=== PATIENT | female | born 1975 | race Caucasian/White ===

== ENCOUNTER 2017-01-19 00:17 | Emergency (ER) | payer OTHER ==
[~2017-01-19] VITALS: Ht 165.1 cm; Wt 76.9 kg
[~2017-01-19 00:17] MED LIST: CLEOCIN150 MG PO; NAPROXEN500 MG PO; NORCO 5/3251 TABLET PO; OXYCODONE H5 MG/5 ML PO; TOBREX5 ML LEFT EYE
[2017-01-19] MEDS ORDERED: TOBREX5 ML LEFT EYE (01:53)
[2017-01-19 02:08] VITALS: BP 121/81
== END 2017-01-19 02:09 | disposition home or self-care (01) ==
LOC: EXP 00:17 → EME 00:17 → EXP 02:09
DX: H10.9 Unspecified conjunctivitis (principal); F17.200 Nicotine dependence, unspecified, uncomplicated
CPT/HCPCS: 99281; 99283

== ENCOUNTER 2017-02-05 13:19 | Emergency (ER) | payer OTHER ==
[~2017-02-05] VITALS: Ht 165.1 cm; Wt 75.5 kg
[2017-02-05 14:36] LABS: POINT-OF-CARE METER ID UU13113702
[2017-02-05] MEDS ORDERED: KEFLEX500 MG PO (14:47)
[2017-02-05 15:32] VITALS: BP 128/75
== END 2017-02-05 15:33 | disposition home or self-care (01) ==
LOC: EME 13:19
PROVIDERS: Nurse Practitioner Family
PROC: 0H90XZZ Drainage of Scalp Skin, External Approach (ICD-10-PCS; principal; 2017-02-05)
DX: L02.811 Cutaneous abscess of head [any part, except face] (principal); E11.9 Type 2 diabetes mellitus without complications; Z79.4 Long term (current) use of insulin; Z91.14 Patient's other noncompliance with medication regimen; F17.200 Nicotine dependence, unspecified, uncomplicated
CPT/HCPCS: 82948; 99281; 99284; J3010

== ENCOUNTER 2017-02-08 10:20 | Emergency (ER) | payer OTHER ==
[~2017-02-08] VITALS: Ht 165.1 cm; Wt 75.0 kg
[~2017-02-08 10:20] MED LIST changes: +KEFLEX500 MG PO
[2017-02-08 12:47] VITALS: BP 154/89
== END 2017-02-08 12:47 | disposition home or self-care (01) ==
LOC: EME 10:20
DX: L02.811 Cutaneous abscess of head [any part, except face] (principal)
CPT/HCPCS: 99281; 99283

== ENCOUNTER 2017-05-15 01:09 | Emergency (ER) | payer OTHER ==
[~2017-05-15] VITALS: Ht 165.1 cm; Wt 79.2 kg
[2017-05-15 01:34] LABS: HEMATOCRIT 37.7 % (36.0-46.0); MCH 30.3 PG (29.0-34.0); MCV 89.3 FL (83-99); MEAN PLAT.VOLUME 10.2 uM^3 (9.5-12.4); PLATELET COUNT 272 K/uL (156-360); RBC DIS.WIDTH-CV 12.9 % (11.8-14.6); RBC DIS.WIDTH-SD 42.5 % (39-53); RED BLOOD COUNT 4.22 M/uL (3.80-5.20); WHITE BLOOD COUNT 11.6 K/uL (4.1-10.2)
[2017-05-15 01:42] LABS: CHLORIDE 98 mEq/L (99-109); POTASSIUM 4.3 mEq/L (3.7-5.4); SODIUM 132 mEq/L (136-147)
[2017-05-15] MEDS ORDERED: ROBITUSSIN AC,T10 ML PO (01:43)
[2017-05-15] MEDS ORDERED: PREDNISONE20 MG PO (01:43)
[2017-05-15] MEDS ORDERED: DOXYCYCLINE HY100 MG PO (01:43)
[2017-05-15 01:45] LABS: ANION GAP 14 MEQ/L (2-14); GLUCOSE 410 mg/dL (70-99)
[2017-05-15 01:47] LABS: GFR ESTIMATE (CALCULATED) > 59 mL/min/
[2017-05-15 01:48] LABS: UREA NITROGEN (BUN) 17 mg/dL (9-23)
[2017-05-15 01:51] VITALS: BP 149/95
== END 2017-05-15 01:59 | disposition home or self-care (01) ==
LOC: EME 01:09 → EXP 01:09
DX: J20.9 Acute bronchitis, unspecified (principal); E11.65 Type 2 diabetes mellitus with hyperglycemia; Z86.14 Personal history of Methicillin resistant Staphylococcus aureus infection; F17.200 Nicotine dependence, unspecified, uncomplicated
CPT/HCPCS: 71020; 80048; 85027; 99281; 99284; J7512

== ENCOUNTER 2017-07-05 00:10 | Emergency (ER) | payer OTHER ==
[~2017-07-05] VITALS: Ht 165.1 cm; Wt 75.2 kg
[~2017-07-05 00:10] MED LIST changes: +DOXYCYCLINE HY100 MG PO; +PREDNISONE20 MG PO; +ROBITUSSIN AC,T10 ML PO
[2017-07-05 00:11] VITALS: BP 157/84
[2017-07-05] MEDS ORDERED: NAPROSYN500 MG PO (01:45)
== END 2017-07-05 02:03 | disposition home or self-care (01) ==
LOC: EME 00:10 → EXP 00:10
PROC: 2W3RX1Z Immobilization of Left Lower Leg using Splint (ICD-10-PCS; principal; 2017-07-05)
DX: M77.52 Other enthesopathy of left foot and ankle (principal); M77.32 Calcaneal spur, left foot; F17.200 Nicotine dependence, unspecified, uncomplicated
CPT/HCPCS: 73630; 99281; 99284

== ENCOUNTER 2017-08-05 00:07 | Emergency (ER) | payer OTHER ==
[~2017-08-05] VITALS: Ht 165.1 cm; Wt 78.2 kg
[~2017-08-05 00:07] MED LIST changes: +NAPROSYN500 MG PO
[2017-08-05 01:27] LABS: HEMATOCRIT 35.5 % (36.0-46.0); HEMOGLOBIN 12.4 G/DL (11.9-15.5); MCH 30.4 PG (29.0-34.0); MCHC 34.9 G/DL (30.0-36.0); PLATELET COUNT 235 K/uL (156-360); RBC DIS.WIDTH-CV 12.6 % (11.8-14.6); RBC DIS.WIDTH-SD 40.1 % (39-53); RED BLOOD COUNT 4.08 M/uL (3.80-5.20); WHITE BLOOD COUNT 10.2 K/uL (4.1-10.2)
[2017-08-05 01:36] LABS: CHLORIDE 100 mEq/L (99-109); POTASSIUM 3.7 mEq/L (3.7-5.4); SODIUM 129 mEq/L (136-147)
[2017-08-05 01:38] LABS: GLUCOSE 337 mg/dL (70-99)
[2017-08-05 01:42] LABS: CREATININE 0.8 mg/dL (0.6-1.3); GFR ESTIMATE (CALCULATED) > 59 mL/min/; UREA NITROGEN (BUN) 10 mg/dL (9-23)
[2017-08-05 03:20] LABS: APPEARANCE CLEAR ((CLEAR)); BILIRUBIN NEGATIVE; BLOOD LARGE; COLOR YELLOW ((YELLOW)); GLUCOSE (STRIP) >=500; KETONES 20; LEUKOCYTES NEGATIVE; NITRITE NEGATIVE; PROTEIN (STRIP) 100; SPECIFIC GRAVITY 1.031 (1.000-1.030); UROBILINOGEN 0.2 MG/DL (0.2-1.0)
[2017-08-05 03:26] LABS: BACTERIA NONE SEEN /HPF; EPITHELIAL CELLS NONE SEEN /HPF; MUCUS NONE SEEN /LPF; RED BLOOD CELLS 15-20 /HPF (0-5); UCUL ADDED? NO; WHITE BLOOD CELLS 0-5 /HPF (0-5)
[2017-08-05] MEDS ORDERED: TAMIFLU75 MG PO (03:50)
[2017-08-05 05:00] VITALS: BP 168/99
== END 2017-08-05 04:47 | disposition home or self-care (01) ==
LOC: EME 00:07
PROVIDERS: Emergency Medicine
DX: J10.1 Influenza due to other identified influenza virus with other respiratory manifestations (principal); E87.1 Hypo-osmolality and hyponatremia; E11.65 Type 2 diabetes mellitus with hyperglycemia; F17.200 Nicotine dependence, unspecified, uncomplicated; Z88.0 Allergy status to penicillin
CPT/HCPCS: 71046; 80047; 80048; 81003; 85027; 87502; 87651 90; 99281; 99285; J2405; J7030

== ENCOUNTER 2017-08-20 02:28 | Emergency (ER) | payer OTHER ==
[~2017-08-20] VITALS: Ht 165.1 cm; Wt 77.7 kg
[~2017-08-20 02:28] MED LIST changes: +TAMIFLU75 MG PO
[2017-08-20 06:17] LABS: BASOPHIL (%) 0.7 % (0-1); BASOPHIL COUNT 0.1 K/uL (0-0.1); EOSINOPHIL COUNT 0.1 K/uL (0-0.3); HEMATOCRIT 33.8 % (36.0-46.0); HEMOGLOBIN 11.5 G/DL (11.9-15.5); IMMATURE GRANULOCYTE (%) 0.4 % (0.0-0.7); LYMPHOCYTE COUNT 3.2 K/uL (1.0-2.8); MCH 29.8 PG (29.0-34.0); MCV 87.6 FL (83-99); MONOCYTE (%) 8.1 % (3-12); MONOCYTE COUNT 0.8 K/uL (0-0.8); NEUTROPHIL (%) 57.8 % (45-76); NEUTROPHIL COUNT 5.8 K/uL (1.8-6.4); PLATELET COUNT 273 K/uL (156-360); RBC DIS.WIDTH-CV 12.7 % (11.8-14.6); RBC DIS.WIDTH-SD 40.8 % (39-53); RED BLOOD COUNT 3.86 M/uL (3.80-5.20)
[2017-08-20 06:27] LABS: CHLORIDE 99 mEq/L (99-109); POTASSIUM 4.5 mEq/L (3.7-5.4); SODIUM 130 mEq/L (136-147)
[2017-08-20 06:32] LABS: CREATININE 0.8 mg/dL (0.6-1.3); GFR ESTIMATE (CALCULATED) > 59 mL/min/
[2017-08-20 06:33] LABS: UREA NITROGEN (BUN) 15 mg/dL (9-23)
[2017-08-20 06:34] LABS: GLUCOSE 652 mg/dL (70-99)
[2017-08-20 07:03] LABS: QUANTITATIVE HCG 1392.8 MIU/ML
[2017-08-20 09:45] VITALS: BP 139/78
== END 2017-08-20 09:45 | disposition home or self-care (01) ==
LOC: EME 02:28
PROVIDERS: Emergency Medicine
DX: O26.899 Other specified pregnancy related conditions, unspecified trimester (principal); R60.0 Localized edema; O24.319 Unspecified pre-existing diabetes mellitus in pregnancy, unspecified trimester; E11.65 Type 2 diabetes mellitus with hyperglycemia; T38.3X6A Underdosing of insulin and oral hypoglycemic [antidiabetic] drugs, initial encounter; Z91.128 Patient's intentional underdosing of medication regimen for other reason; Z3A.00 Weeks of gestation of pregnancy not specified; O99.330 Smoking (tobacco) complicating pregnancy, unspecified trimester; F17.200 Nicotine dependence, unspecified, uncomplicated; Z88.1 Allergy status to other antibiotic agents
CPT/HCPCS: 80048; 82948; 83880; 84702; 85025; 93970; J7030

== ENCOUNTER 2017-12-30 05:55 | Emergency (ER) | payer OTHER ==
[~2017-12-30] VITALS: Ht 165.1 cm; Wt 76.6 kg
[2017-12-30] MEDS ORDERED: NAPROSYN500 MG PO (06:20)
[2017-12-30 06:36] VITALS: BP 162/88
== END 2017-12-30 06:37 | disposition home or self-care (01) ==
LOC: EME 05:55
DX: M25.531 Pain in right wrist (principal); G89.29 Other chronic pain; G56.01 Carpal tunnel syndrome, right upper limb; F17.200 Nicotine dependence, unspecified, uncomplicated
CPT/HCPCS: 99281; 99284

== ENCOUNTER 2018-02-03 02:43 | Emergency (ER) | payer OTHER ==
[~2018-02-03] VITALS: Ht 165.1 cm; Wt 76.7 kg
[2018-02-03] MEDS ORDERED: NORCO 5/3251 TABLET PO (04:31)
[2018-02-03] MEDS ORDERED: MEDROL DOSEPAK4 MG PO (04:31)
[2018-02-03 05:09] VITALS: BP 159/92
== END 2018-02-03 05:11 | disposition home or self-care (01) ==
LOC: EXP 02:43 → EME 02:43 → EXP 05:11
DX: M25.551 Pain in right hip (principal); E11.9 Type 2 diabetes mellitus without complications; F17.200 Nicotine dependence, unspecified, uncomplicated; Z88.0 Allergy status to penicillin
CPT/HCPCS: 73502; 99281; 99283; J7512